=== PATIENT | male | born 1930 | race Caucasian/White ===

== ENCOUNTER 2017-03-30 04:19 | Emergency (ER) | payer OTHER, BC ==
[2017-03-30 04:25] VITALS: TEMP 97.5
--- NOTE | 2017-03-30 04:50 | EDPHY ---
H & P Stated Complaint: FALL ON WAY TO RESTROOM, LACERATION TO RIGHT EYEBROW Time Seen by Provider: 03/30/17 04:30 HPI/ROS: Chief Complaint: Eyebrow laceration HPI: 87-year-old male was sitting on the toilet this morning. He reached for the handrail but missed and fell forward striking the right eyebrow on a sharp edge. He did not fall full weight on the floor. He had no loss of consciousness. He is not on any blood thinners. No vision changes. No nausea or vomiting. No neck pain. ROS: 10 point Review of Systems is negative except as noted in the HPI. Physical Exam: Gen: Awake, Alert, Airway Intact HEENT: Head: Patient has a 1 cm laceration just inferior to his right eyebrow. There is no bony tenderness or crepitus Eyes: PERRLA, EOMI Nose: No epistaxis Mouth: Normal dentition, Airway patent Face: No deformity Neck: non-tender, no stepoff, Full ROM without pain Ext: atramatic, full ROM Skin: no rash Neuro: CN II-XII intact, Strength 5/5 in all extremities, sensation intact in all extremities - Personal History Current Tetanus/Diphtheria Vaccine: Yes Current Tetanus Diphtheria and Acellular Pertussis (TDAP): Yes Tetanus Vaccine Date: Less than 10 years - Medical/Surgical History Hx Asthma: No Hx Chronic Respiratory Disease: No Hx Diabetes: No Hx Cardiac Disease: No Hx Renal Disease: No Hx Cirrhosis: No Hx Alcoholism: No Hx HIV/AIDS: No Hx Splenectomy or Spleen Trauma: No Other PMH: Prostatic hypertrophy, HTN, hyperlipidemia, GERD r/t Barretts esophagitis, RA, plantar fasciitis L foot, cervical foraminal stenosis. shldr rplcment - Social History Smoking Status: Never smoked Constitutional: Initial Vital Signs Temperature (C) 36.4 C 03/30/17 04:23 Heart Rate 79 03/30/17 04:23 Respiratory Rate 18 03/30/17 04:23 Blood Pressure 169/105 H 03/30/17 04:23 O2 Sat (%) 90 L 03/30/17 04:23 O2 Delivery Mode Room Air Allergies/Adverse Reactions: No Known Allergies Allergy (Unverified 03/30/17 04:25) Home Medications: Medication Instructions Recorded Acetaminophen [Tylenol Tablet] 500 mg PO DAILY PRN 10/06/13 Esomeprazole Mag Trihydrate 40 mg PO DAILY 10/06/13 [Nexium] Naproxen Sodium [Aleve 220 MG 220 mg PO DAILY PRN 10/06/13 (OTC)] Lisinopril [Zestril 10 mg (RX)] 10 mg PO DAILY 10/21/13 Ciprofloxacin [Cipro] 500 mg PO BID #14 tab 02/05/14 Medical Decision Making Procedures: Procedure: Laceration repair. Verbal consent was obtained from the patient. The 1 cm laceration on the right eyebrow was anesthetized in the usual fashion. The wound was irrigated, draped and explored to its base with a gloved finger. There were no deep structures involved. No tendon injury was identified. The wound was repaired with 3, 6-0 Ethilon simple interrupted sutures. The wound repair was uncomplicated. The procedure was performed by myself. Departure - Departure Disposition: Home, Routine, Self-Care Clinical Impression: Laceration Condition: Good Instructions: Care For Your Stitches (ED), Facial Laceration (ED) Additional Instructions: Sutures need to be removed in 5 days. Return to the emergency depart for increasing headache, nausea, vomiting, neck pain, numbness, weakness, or any other concerns. Referrals: Boni Bailey MD [Medical Doctor] - As per Instructions
[2017-03-30 05:27] VITALS: BP 145/78; PULSE 82; RESP 16; O2SAT 92
== END 2017-03-30 05:05 | disposition home or self-care (01) ==
PROC: 0HQ1XZZ Repair Face Skin, External Approach (ICD-10-PCS; principal; 2017-03-30)
DX: S01.111A Laceration without foreign body of right eyelid and periocular area, initial encounter (principal); I10 Essential (primary) hypertension; W01.198A Fall on same level from slipping, tripping and stumbling with subsequent striking against other object, initial encounter; Y92.002 Bathroom of unspecified non-institutional (private) residence as the place of occurrence of the external cause; Y93.89 Activity, other specified